=== PATIENT | male | born 1960 | race Caucasian/White ===

== ENCOUNTER → 2021-11-14 | Outpatient (CLI) | payer OTHER ==
[~2021-11-14] MED LIST: BUPROPRION PO; MOTRIN800 MG PO; NEXIUM PO; PRILOSEC 20MG20 MG PO; PRINZIDE 25 MG-1 TAB PO; REMERON 15M15 MG/TA1 PO; REQUIP 0.5MG0.5 MG PO; REQUIP 1MG T1 MG/TAB PO; REQUIP0.5 MG PO; WELLBUTRIN XL150 MG PO
== END ==
LOC: MC.RAD 10:00
DX: N63.10 Unspecified lump in the right breast, unspecified quadrant (principal)